=== PATIENT | female | born 1985 | race Two or more races ===

== ENCOUNTER 2018-06-23 17:56 | Inpatient (IN) | payer OTHER ==
--- NOTE | 2018-06-23 18:07 | PDOC ---
Rapid Medical Evaluation Medical Evaluation: I have performed a brief in-person evaluation of this patient. The patient presents with a chief complaint of: 6 weeks , seen by Dr. Toyin Gambino today and had 1st ultrasound done today which showed ectopic ; was advised to come to ED; patient has some lower abdominal pain but denies vaginal bleeding. Patient states she is scheduled for surgery today at 9 PM Pertinent physical exam findings: In NAD; pelvic deferred I have ordered the following: Labs The patient will proceed to the ED for further evaluation. 06/23/18 18:07 Discharge Disposition - Discharge Dispostion Condition at time of disposition: Stable - Referrals Referrals: Toyin Gambino DO [Primary Care Provider] - - Patient Instructions - Post Discharge Activity
[2018-06-23 18:11] VITALS: BMI 25.9
[2018-06-23] MEDS ORDERED: SODIUM CHLORIDE 0.9% 1000 ML INFUS.BAG IV ONE (18:21)
--- NOTE | 2018-06-23 18:21 | PDOC ---
History of Present Illness <Lilly Machado - Last Filed: 06/23/18 18:51> - History of Present Illness Initial Comments: This patient is a 32 year old female A1, who is 6 week and was sent to [facility] [place] by her doctor for an ectopic . She is scheduled for surgery at 9:00 pm. She states that she last ate at 11:30 am and last drank water at 1:30pm. Allergies: denies Surgical Hx: breast augmentation She denies any vaginal bleeding, discharge, or dysuria. 06/23/18 18:56 <Peg Bryant - Last Filed: 06/23/18 19:09> - General Chief Complaint: Pain, Acute Stated Complaint: ECTOPIC /PCP REFERRED Time Seen by Provider: 06/23/18 18:07 Past History - Past Medical History COPD: No Dementia: No GI Disorders: No - Surgical History Appendectomy: No Gastric Stapling: No - Immunization History Immunization Up to Date: No - Suicide/Smoking/Psychosocial Hx Smoking History: Never smoked Have you smoked in the past 12 months: No Information on smoking cessation initiated: No Hx Alcohol Use: No Drug/Substance Use Hx: No <Lilly Machado - Last Filed: 06/23/18 18:51> <Pge Bryant - Last Filed: 06/23/18 19:09> - Past Medical History Allergies/Adverse Reactions: Allergies Allergy/AdvReac Type Severity Reaction Status Date / Time No Known Allergies Allergy Verified 06/23/18 18:11 Home Medications: Ambulatory Orders NK [No Known Home Medication] 06/23/18 Review of Systems - Review of Systems Comments:: GENERAL/CONSTITUTIONAL: No fever or chills. No weakness. HEAD, EYES, EARS, NOSE AND THROAT: No change in vision. No ear pain or discharge. No sore throat. CARDIOVASCULAR: No chest pain or shortness of breath. RESPIRATORY: No cough, wheezing, or hemoptysis. GASTROINTESTINAL: No nausea, vomiting, diarrhea or constipation. GENITOURINARY: No dysuria, frequency, or change in urination. MUSCULOSKELETAL: No joint or muscle swelling or pain. No neck or back pain. SKIN: No rash NEUROLOGIC: No headache, vertigo, loss of consciousness, or change in strength/ sensation. ENDOCRINE: No increased thirst. No abnormal weight change. HEMATOLOGIC/LYMPHATIC: No anemia, easy bleeding, or history of blood clots. ALLERGIC/IMMUNOLOGIC: No hives or skin allergy. <Peg Bryant - Last Filed: 06/23/18 19:09> *Physical Exam - Vital Signs Last Vital Signs Temp Pulse Resp BP Pulse Ox 98.7 F 68 18 100/50 L 100 06/23/18 18:08 06/23/18 18:08 06/23/18 18:08 06/23/18 18:08 06/23/18 18:08 <Lilly Machado - Last Filed: 06/23/18 18:51> - Vital Signs Last Vital Signs Temp Pulse Resp BP Pulse Ox 98.7 F 68 18 100/50 L 100 06/23/18 18:08 06/23/18 18:08 06/23/18 18:08 06/23/18 18:08 06/23/18 18:08 - Physical Exam Comments: GENERAL: Awake, alert, and fully oriented, in no acute distress HEAD: No signs of trauma EYES: PERRLA, EOMI, sclera anicteric, conjunctiva clear LUNGS: Breath sounds equal, clear to auscultation bilaterally. No wheezes, and no crackles HEART: Regular rate and rhythm, normal S1 and S2, no murmurs, rubs or gallops ABDOMEN: Soft, very mild right lower pelvic tenderness to palpation, normoactive bowel sounds. No guarding, no rebound. No masses EXTREMITIES: Normal range of motion, no edema. No clubbing or cyanosis. No cords, erythema, or tenderness NEUROLOGICAL: Normal speech, normal gait SKIN: Warm, Dry, normal turgor, no rashes or lesions noted. 06/23/18 19:08 <Peg Bryant - Last Filed: 06/23/18 19:09> Moderate Sedation - Procedure Monitoring Vital Signs: Procedure Monitoring Vital Signs Temperature 98.7 F 06/23/18 18:08 Pulse Rate 68 06/23/18 18:08 Respiratory Rate 18 06/23/18 18:08 Blood Pressure 100/50 L 06/23/18 18:08 O2 Sat by Pulse Oximetry (%) 100 06/23/18 18:08 <Lilly Machado - Last Filed: 06/23/18 18:51> - Procedure Monitoring Vital Signs: Procedure Monitoring Vital Signs Temperature 98.7 F 06/23/18 18:08 Pulse Rate 68 06/23/18 18:08 Respiratory Rate 18 06/23/18 18:08 Blood Pressure 100/50 L 06/23/18 18:08 O2 Sat by Pulse Oximetry (%) 100 06/23/18 18:08 <Peg Bryant - Last Filed: 06/23/18 19:09> ED Treatment Course - LABORATORY CBC & Chemistry Diagram: 06/23/18 18:25 06/23/18 18:25 <Lilly Machado - Last Filed: 06/23/18 18:51> - LABORATORY CBC & Chemistry Diagram: 06/23/18 18:25 06/23/18 18:25 - ADDITIONAL ORDERS Additional order review: 06/23/18 18:25 RBC 4.64 MCV 83.0 MCHC 34.7 RDW 13.2 MPV 8.3 Neutrophils % 65.7 Lymphocytes % 24.9 Monocytes % 7.3 Eosinophils % 1.1 Basophils % 1.0 - Medications Given in the ED: ED Medications Discontinued Medications Generic Name Dose Route Start Last Admin Trade Name Freq PRN Reason Stop Dose Admin Sodium Chloride 1,000 ml 06/23/18 18:21 06/23/18 18:43 Normal Saline - IV 06/23/18 18:22 1,000 ml ONCE ONE Administration <Peg Bryant - Last Filed: 06/23/18 19:09> Medical Decision Making - Medical Decision Making 06/23/18 18:51 a/p: 32yo female sent from Dr. Gambino for ectopic -pt is scheduled for the OR at 9pm -will send labs -had ultrasound performed at Dr. Gambino office -will place on Dr. Gambino service for the OR at 9 pt NPO since 1p pt in NAD <Lilly Machado - Last Filed: 06/23/18 18:51> *DC/Admit/Observation/Transfer - Discharge Dispostion Decision to Admit order: Yes - Attestations Physician Attestion: 06/23/18 18:30 I, Dr. Lilly Machado, DO, attest that this document has been prepared under my direction and personally reviewed by me in its entirety. I further attest, that it accurately reflects all work, treatment, procedures and medical decision -making performed by in. <Lilly Machado - Last Filed: 06/23/18 18:51> - Attestations Scribe Attestion: 06/23/18 19:09 Documentation prepared by Peg Bryant, acting as medical technician assistant for Lilly Machado DO. <Peg Bryant - Last Filed: 06/23/18 19:09> Diagnosis at time of Disposition: Ectopic - Discharge Dispostion Condition at time of disposition: Fair - Referrals Referrals: Toyin Gambino DO [Primary Care Provider] - - Patient Instructions - Post Discharge Activity
[2018-06-23 18:50] LABS: EOS % 1.1 % (0-4.5); HEMATOCRIT 38.5 % (32.4-45.2); HEMOGLOBIN 13.4 GM/dL (10.7-15.3); LYMPH % 24.9 % (8-40); MCH 28.8 pg (25.7-33.7); MCHC 34.7 g/dl (32.0-36.0); MEAN PLT VOLUME 8.3 fl (7.5-11.1); MONO % 7.3 % (3.8-10.2); NEUT % 65.7 % (42.8-82.8); PLATELET COUNT 356 K/MM3 (134-434); RBC 4.64 M/mm3 (3.60-5.2); RDW 13.2 % (11.6-15.6); WHITE BLOOD COUNT 10.4 K/mm3 (4.0-10.0)
[2018-06-23 19:18] LABS: INR 1.03 (0.83-1.09); PROTHROMBIN TIME (PATIENT) 12.2 SEC (9.7-13.0)
[2018-06-23 19:20] LABS: ACTIVATED PTT 26.9 SECONDS (25.2-36.5)
--- NOTE | 2018-06-23 19:41 | HP ---
Admitting History and Physical - Admission Chief Complaint: abdominal pain/ History of Present Illness: 32 y/o female with h/o c section X 1 was seen in the office today for a positive test, found on ultrasound to have right ectopic . History Source: Patient, Medical Record Limitations to Obtaining History: No Limitations - Past Medical History ...: Yes - Smoking History Smoking history: Never smoked Have you smoked in the past 12 months: No - Alcohol/Substance Use Hx Alcohol Use: No Home Medications - Allergies Allergies/Adverse Reactions: Allergies Allergy/AdvReac Type Severity Reaction Status Date / Time No Known Allergies Allergy Verified 06/23/18 18:11 - Home Medications Home Medications: Ambulatory Orders NK [No Known Home Medication] 06/23/18 Physical Examination Vital Signs: Vital Signs Temperature 98.7 F 06/23/18 18:08 Pulse Rate 68 06/23/18 18:08 Respiratory Rate 18 06/23/18 18:08 Blood Pressure 100/50 L 06/23/18 18:08 O2 Sat by Pulse Oximetry (%) 100 06/23/18 18:08 Constitutional: Yes: Well Nourished, No Distress, Calm Labs: CBC, BMP 06/23/18 18:25 Assessment/Plan Right sided ectopic plan for laparoscopy, possible salpingostomy, possible salpingectomy, possible oophporectomy pt aware of procedure/plan NPO since this a.m. consents signed prior to procedure anesthesia/OR aware
[2018-06-23] MEDS ORDERED: LACTATED RINGERS SOLUTION 1,000 ML IV SCH ×3 (19:45→22:01)
[2018-06-23 19:50] LABS: ANION GAP 7 MMOL/L (8-16); BLOOD UREA NITROGEN 10 mg/dL (7-18); CALCIUM 9.1 mg/dL (8.5-10.1); CHLORIDE 104 mmol/L (98-107); CO2 26 mmol/L (21-32); CREATININE 0.7 mg/dL (0.55-1.3); GLUCOSE,RANDOM 86 mg/dL (74-106); POTASSIUM 3.7 mmol/L (3.5-5.1); SODIUM 137 mmol/L (136-145)
[2018-06-23] MEDS ORDERED: oxyCODONE HCL 5 MG TABLET PO PRN ×2 (20:13→22:01)
[2018-06-23] MEDS ORDERED: ONDANSETRON 4 MG/2 ML VIAL IVPUSH PRN ×2 (20:13→22:01)
[2018-06-23] MEDS ORDERED: PROMETHAZINE HCL 25 MG/1 ML VIAL IVPUSH PRN ×2 (20:13→22:01)
[2018-06-23] MEDS ORDERED: MIDAZOLAM HCL 2 MG/2 ML SINGLE DOSE VIAL ONE ×2 (20:18→22:01)
[2018-06-23] MEDS ORDERED: PROPOFOL 20 ML ONE ×2 (20:19→22:01)
[2018-06-23] MEDS ORDERED: ROCURONIUM BROMIDE 50 MG/5 ML VIAL ONE ×2 (20:19→22:01)
[2018-06-23] MEDS ORDERED: LIDOCAINE HCL/PF 2% SDV 5ML VIAL ONE ×2 (20:20→22:01)
[2018-06-23] MEDS ORDERED: DEXAMETHASONE SOD PHOSPHATE 4 MG/1 ML VIAL ONE ×2 (21:01→22:01)
[2018-06-23] MEDS ORDERED: GLYCOPYRROLATE 0.2 MG/1 ML VIAL ONE ×2 (21:17→22:01)
[2018-06-23] MEDS ORDERED: NEOSTIGMINE METHYLSULFATE 0.5 MG/ML - 10 ML MDV ONE ×2 (21:17→22:01)
[2018-06-23] MEDS ORDERED: ACETAMINOPHEN INJECTION 100 ML IVPB ONE ×2 (21:20→22:01)
[2018-06-23] MEDS ORDERED: BUPIVACAINE HCL/PF 0.5% (5MG/ML) 10 ML VIAL IJ ONE (21:30)
--- NOTE | 2018-06-23 21:41 | OP ---
Operative Note - Note: Operative Date: 06/23/18 Pre-Operative Diagnosis: right ectopic . Operation: laparoscopic right salpingectomy Post-Operative Diagnosis: Same as Pre-op Surgeon: Toyin Gambino Live Out Nanny: Rubi Oliver Anesthesiologist/IRONER SOCK: Breezy Mcdaniel Anesthesia: General Specimens Removed: right fallopian tube with contents Estimated Blood Loss (mls): 10 Drains, Volume Out (mls): 100 (grove) Fluid Volume Replaced (mls): 400 Operative Report Dictated: Yes
--- NOTE | 2018-06-23 21:42 | SURG ---
Surgery Legal Researcher Note Legal Researcher: Rubi Oliver PA-C Date of Service: 06/23/18 Diagnosis: right ectopic . Procedure: laparoscopic right salpingectomy I was present for the entirety of the operative procedure. For further detail, please refer to operative report. Visit type - Case Type Case Type: Scheduled - Emergency Emergency Visit: No - New patient This patient is new to me today: Yes Date on this admission: 06/23/18
[2018-06-23] MEDS ORDERED: MEPERIDINE HCL CARPU-JECT 25 MG/1 ML DISP.SYRIN ONE (21:43)
[2018-06-23] MEDS: MEPERIDINE HCL 50 MG/ML VIAL IVPUSH ONE (21:50)
[2018-06-23] MEDS ORDERED: IBUPROFEN 800 MG/8 ML IJ IVPB PRN ×2 (22:00→22:01)
[2018-06-24] MEDS: MEPERIDINE HCL 50 MG/ML VIAL IVPUSH ONE (01:04)
[2018-06-24] MEDS: oxyCODONE HCL 5 MG TABLET PO PRN ×2 (03:34→08:48)
[2018-06-24 07:22] LABS: HEMOGLOBIN 12.5 GM/dL (10.7-15.3); MCH 29.2 pg (25.7-33.7); MCHC 35.7 g/dl (32.0-36.0); MEAN CELL VOLUME 81.7 fl (80-96); MEAN PLT VOLUME 8.5 fl (7.5-11.1); PLATELET COUNT 326 K/MM3 (134-434); RBC 4.28 M/mm3 (3.60-5.2); RDW 12.5 % (11.6-15.6)
[2018-06-24 08:16] VITALS: BP 102/51; PULSE 61; TEMP 98.6
--- NOTE | 2018-06-25 17:31 | PATH ---
Surgical Pathology Report Patient Name: MAU FRAZIER Med. Rec. #: [id number] /Age/Gender: 1985 (Age: 32) / F Account: [id number] Location: [address] [place] [address] Taken: 06/23/2018 Received: 06/24/2018 Reported: 06/25/2018 Physicians: Toyin Gambino M.D. PHYSICIAN EMERGENCY DEPT Specimen(s) Received RIGHT FALLOPIAN TUBE AND CONTENTS Clinical History Right ectopic Final Diagnosis FALLOPIAN TUBE AND CONTENTS, RIGHT, LAPAROSCOPIC SALPINGECTOMY: CHORIONIC VILLI IN A BACKGROUND OF HEMORRHAGE PRESENT WITHIN THE FALLOPIAN TUBE, CONSISTENT WITH ECTOPIC . Electronically Signed Kyara Albrecht M.D. Gross Description Received in formalin labeled "right fallopian tube," is a 7 cm in length fimbriated fallopian tube. The tube appears focally dilated. The outer surface is wilcox-weber and smooth. Sectioning reveals red-brown blood clot in the area of the dilatation. Possible villous tissue is identified. No somatic tissue is identified. Fiberglass Technician sections are submitted in 3 cassettes as follows: 1-fimbria; 2-3-cross sections from area of dilatation. /06/24/2018 saudi06/24/2018
--- NOTE | 2018-06-27 12:24 | OP ---
DATE OF OPERATION: 06/23/2018 PREOPERATIVE DIAGNOSIS: Right ectopic . POSTOPERATIVE DIAGNOSIS: Right ectopic . PROCEDURE: Laparoscopic right salpingectomy. SURGEON: Toyin Gambino MD ANESTHESIA: General by Dr. Mcdaniel. BAR CATCHER: AGA Francisco ESTIMATED BLOOD LOSS: 5 mL. COMPLICATIONS: None. SPECIMENS REMOVED: Right fallopian tube. COUNTS: Sponge, needle and instrument count correct DISPOSITION: Stable to the PACU. BRIEF HISTORY AND PROCEDURE: Patient is a 32-year-old female who had been seen in the office with a missed period, and on ultrasound examination, and positive test, revealed a right ectopic . The patient was sent to the emergency department for admission to the hospital to plan for surgical management. Upon admission to the hospital, the patient signed consents for a laparoscopy, possible right salpingectomy, possible right oophorectomy, possible excision of ectopic via salpingostomy if possible. She was then interviewed by Anesthesia and taken back to the operating room, placed in the dorsal lithotomy position, given general anesthesia, and a Livingston catheter was placed under sterile conditions. A hard timeout was performed. She was prepped and draped in the usual sterile fashion. A 5-mm skin incision was created in the umbilicus and a Veress needle was placed intraabdominally. The abdomen was insufflated with CO2 gas. Then a 5-mm trocar was placed intra-abdominally. The camera was placed in the trocar, and after confirmation of intraabdominal placement, two 5-mm bilateral lower quadrant ports were placed under direct visualization. After inspection of the pelvis, normal uterus was noted although there were some adhesions to the anterior abdominal wall from a prior section. The left tube and ovary were noted to be normal. The right ovary was noted to be normal. The right fallopian tube was noted to have the ectopic in the mid portion of the tube. At this point, the decision was made for resection of the entire tube, as the majority of the tube appeared to be damaged at this point. Using the LigaSure device, the fallopian tube was elevated and dissected off its attachment to the ovary, mesosalpinx, and uterus using LigaSure device and was removed through a 10-mm port of the right lower quadrant via an EndoCatch bag. This was done under direct visualization without difficulty. The surgical bed was noted to be hemostatic. Again, both ovaries and the left fallopian tube appeared to be normal. Next, the 10-mm lower quadrant port on the right was closed with the Gerry-Nicola device using 0 Vicryl suture. The skin was reapproximated using 0 Biosyn on that side. The other trocars were removed. The abdomen was desufflated. Skin on both trocar sites were reapproximated with 0 Biosyn, and skin glue was applied to all incisions. Livingston catheter was removed. All instruments were counted. Sponge, needle and instrument counts was reported to be correct. The patient tolerated the procedure well, was recovering in stable condition in the PACU after the procedure. TOYIN GAMBINO DO /[id number]
== END 2018-06-24 09:29 | disposition home or self-care (01) | DRG 545 ==
LOC: JER 17:56 → JERBED 18:31 → J6S 23:15
PROVIDERS: ADMIT Obstetrics & Gynecology; ATTEND Obstetrics & Gynecology
PROC: 0UB54ZZ Excision of Right Fallopian Tube, Percutaneous Endoscopic Approach (ICD-10-PCS; 2018-06-23)
PROC: 10T24ZZ Resection of Products of Conception, Ectopic, Percutaneous Endoscopic Approach (ICD-10-PCS; principal; 2018-06-23 20:12)
DX: O00.101 Right tubal pregnancy without intrauterine pregnancy (principal)
CPT/HCPCS: 36415; 80048; 84702; 85025; 85027; 85610; 85730; 86850; 86900; 86901; 88305-TC; 94760; 99284-25; J0131; J2175; J7030